=== PATIENT | male | born 1965 | race African-American/Black ===

== ENCOUNTER 2016-10-20 08:25 | Emergency (ER) | payer MEDICAID ==
[~2016-10-20] VITALS: Ht 190.5 cm; Wt 160.0 kg
[2016-10-20] MEDS ORDERED: ASPI-1159 PO (08:35)
[2016-10-20] MEDS ORDERED: UNKNOWN BP MEDS (08:35)
[2016-10-20] MEDS ORDERED: SODIUM CHLORIDE 0.9% 1,000 ML IV ONE (09:00)
[2016-10-20] MEDS ORDERED: FAMOTIDINE 20MG/2ML VIAL IV STA (09:00)
[2016-10-20 09:25] LABS: BASOPHILS % 0.9 % (0.0-2.0); EOSINOPHILS % 0.4 % (0.0-5.0); HEMATOCRIT. 37.5 % (42.0-52.0); HEMOGLOBIN. 11.9 g/dL (14.0-18.0); MEAN CORPUSCULAR HEMOGLOBIN 22.8 pg (28.0-32.0); MEAN CORPUSCULAR VOLUME 71.9 fL (80.0-94.0); MEAN PLATELET VOLUME 8.6 fl (7.4-10.4); MONOCYTES % 5.3 % (2.0-8.0); NEUTROPHILS % 80.4 % (40.0-76.0); PLATELET 212 x1000/uL (130-400); RED BLOOD CELL COUNT 5.21 mill/uL (4.7-6.1); RED CELL DISTRIBUTION WIDTH 16.3 % (11.6-14.6)
[2016-10-20 09:28] LABS: CHLORIDE 104 mEq/L (98-107)
[2016-10-20] MEDS: FAMOTIDINE 20MG/2ML VIAL IV SCH ×2 (09:31→11:43)
[2016-10-20 09:34] LABS: CARBON DIOXIDE 28 mEq/L (21-32)
[2016-10-20 09:39] LABS: TROPONIN I < 0.02 ng/mL (0.00-0.04)
[2016-10-20 09:54] LABS: PROTHROMBIN TIME 10.4 sec
[2016-10-20 10:17] LABS: CLARITY URINE CLEAR (CLEAR); COLOR URINE YELLOW (YELLOW); GLUCOSE URINE NEGATIVE (NEGATIVE); KETONES URINE NEGATIVE (NEGATIVE); LEUKOCYTE ESTERASE URINE NEGATIVE (NEGATIVE); NITRITE URINE NEGATIVE (NEGATIVE); OCCULT BLOOD URINE NEGATIVE (NEGATIVE); PROTEIN URINE NEGATIVE (NEGATIVE); SPECIFIC GRAVITY URINE 1.021 (1.005-1.030)
[2016-10-20] MEDS ORDERED: POTASSIUM CHLORIDE 20MEQ TABLET SR PO ONE (10:45)
[2016-10-20] MEDS ORDERED: ONDANSETRON HCL 4MG/2ML VIAL IV ONE (11:00)
[2016-10-20] MEDS ORDERED: MORPHINE SULFATE 4 MG/ML CPJ (NOT FOR IM USE) IV ONE (11:00)
[2016-10-20] MEDS ORDERED: SODIUM CHLORIDE 0.9% 10ML VIAL ONE (13:06)
[2016-10-20] MEDS ORDERED: IOHEXOL-300 100 ML BOTTLE ONE (13:06)
[2016-10-20 13:20] VITALS: BP 152/84
== END 2016-10-20 13:21 | disposition home or self-care (01) ==
LOC: ER 08:55
DX: K80.80 Other cholelithiasis without obstruction (principal); K44.9 Diaphragmatic hernia without obstruction or gangrene; E87.6 Hypokalemia; I10 Essential (primary) hypertension; F17.210 Nicotine dependence, cigarettes, uncomplicated; N62 Hypertrophy of breast; N40.0 Benign prostatic hyperplasia without lower urinary tract symptoms; Z79.82 Long term (current) use of aspirin; Z98.84 Bariatric surgery status
CPT/HCPCS: 36415; 71010; 74177; 80053; 81003; 83605; 83690; 84484; 85025; 85610; 93005; 96361; 96374; 96375; 99285; A4216; J2270; J2405; J3490; J7030; Q9967; Z7610

== ENCOUNTER 2016-11-27 03:41 | Emergency (ER) | payer MEDICAID ==
[~2016-11-27] VITALS: Ht 190.5 cm; Wt 159.0 kg
[~2016-11-27 03:41] MED LIST: ASPI-1159 PO; UNKNOWN BP MEDS
[2016-11-27 04:26] VITALS: BP 132/88
== END 2016-11-27 05:40 | disposition left against medical advice (07) ==
LOC: ER 03:41
DX: R10.13 Epigastric pain (principal); R11.0 Nausea; Z53.21 Procedure and treatment not carried out due to patient leaving prior to being seen by health care provider